=== PATIENT | female | born 1945 | race Caucasian/White ===

== ENCOUNTER 2016-08-18 08:49 | Outpatient (CLI) | payer MEDICARE, OTHER | END 2016-08-18 08:50 | disposition home or self-care (01) | DX: Z12.31 Encounter for screening mammogram for malignant neoplasm of breast (principal) ==

== ENCOUNTER 2016-10-14 10:38 | Outpatient (CLI) | payer MEDICARE, OTHER ==
--- NOTE | 2016-10-14 12:22 | XRAY Report ---
THREE VIEW CERVICAL SPINE: 10/14/2016 CLINICAL INDICATION: Tingling left hand. FINDINGS: AP, lateral, odontoid, and swimmers views of the cervical spine demonstrate mild degenerat andrew disk and facet disease. There is no evidence of fracture or subluxation. The prevertebral soft ti ssues are unremarkable. IMPRESSION: MILD DEGENERATIVE CHANGES. JOB #: [id number] EXT JOB #:[id number]
== END 2016-10-14 10:39 | disposition home or self-care (01) ==
LOC: DI 10:38
PROVIDERS: ATTEND Family Medicine
DX: M50.30 Other cervical disc degeneration, unspecified cervical region (principal); M47.892 Other spondylosis, cervical region
CPT/HCPCS: 72040

== ENCOUNTER 2018-11-27 14:11 | Outpatient (CLI) | payer MEDICARE, OTHER ==
--- NOTE | 2018-11-27 16:22 | Mammography Report ---
Reason: SCREENING MAMMO Procedure Date: 11/27/2018 Accession Number: [id number] / [id number] Procedure: JACOB - Screening Mammo w/Will CPT Code: FULL RESULT: EXAM: Screening Mammo w/Will DATE: 11/27/2018 3:17 PM CLINICAL HISTORY: Screening encounter. History of benign left breast biopsy. TECHNIQUE: (B) - Bilateral CC and MLO views were obtained. Right laterally exaggerated CC views obtained. COMPARISON: 08/18/2016 through 05/04/2010. PARENCHYMAL PATTERN: (A) - The breast(s) demonstrate(s) scattered fibroglandular densities. FINDINGS: Was biopsy changes in the left breast are stable. There are no suspicious masses, calcifications, or areas of distortion. IMPRESSION: Benign findings. BI-RADS category 2. RECOMMENDATION: (ANNUAL) - Recommend routine annual screening mammography. BI-RADS CATEGORY: (2) - Benign Findings. STANDARD QUALIFYING STATEMENTS: 1. This examination was not reviewed with the aid of Computer-Aided Detection (CAD). 2. A negative or benign imaging report should not preclude biopsy if clinically suspicious findings are present. 3. Dense breasts may obscure an underlying neoplasm. 4. This examination was reviewed with the aid of 3D breast imaging (tomosynthesis).
== END 2018-11-27 14:12 | disposition home or self-care (01) ==
LOC: DI 14:11
PROVIDERS: ATTEND Internal Medicine
DX: Z12.31 Encounter for screening mammogram for malignant neoplasm of breast (principal)
CPT/HCPCS: 77063; 77067

== ENCOUNTER 2020-03-02 14:27 | Outpatient (CLI) | payer MEDICARE, OTHER ==
--- NOTE | 2020-03-02 15:43 | DEXA Report ---
PROCEDURE: Dexa Spine and/or Hip INDICATIONS: POSTMENOPAUSAL, OSTEOPENIA TECHNIQUE: Dual energy x-ray absorptiometry (DXA) was performed on a [email or web address] System. Regions measur ed are the AP Spine, femoral neck, and if needed forearm. COMPARISON: DEXA FINDINGS: Lumbar Spine: Bone Mineral Density 1.089 g/cm/cm,T score -0.6, unchanged compared to prior exam. Left Hip: Bone Mineral Density 0.935 g/cm/cm,T score -0.6, compared to -0.3 on prior exam. Left Femoral Neck: Bone Mineral Density 0.832 g/cm/cm, T score -1.5, compared to -0.6 on prior exam. (T score greater or equal to -1.0: NORMAL) (T score from -1.1 to -2.4: OSTEOPENIA) (T score less than or equal to -2.5 to: OSTEOPOROSIS) Impression: Mild osteopenia within the femoral neck, new compared to prior exam. Patients with diagnosis of osteoporosis or osteopenia should have regular bone mineral density assess ment. For those eligible for Medicare, routine testing is allowed once every 2 years. Testing frequ ency can be increased for patients who have rapidly progressing disease or for those who are receivin g medical therapy to restore bone mass. Reviewed by: Deirdre Lowe MD on 03/02/2020 3:41 PM PST Approved by: Deirdre Lowe MD on 03/02/2020 3:41 PM PST Station ID: [id number]
== END 2020-03-02 14:28 | disposition home or self-care (01) ==
LOC: DI 14:27
PROVIDERS: ATTEND Physician Assistant Medical
DX: M85.88 Other specified disorders of bone density and structure, other site (principal)
CPT/HCPCS: 77080

== ENCOUNTER 2020-03-02 14:28 | Outpatient (CLI) | payer MEDICARE, OTHER ==
--- NOTE | 2020-03-03 15:07 | Mammography Report ---
BILATERAL DIGITAL SCREENING MAMMOGRAM 3D/2D: 03/02/2020 CLINICAL: Routine screening. Comparison is made to exams dated: 11/27/2018 mammogram, 08/18/2016 mammogram, and 03/10/2015 mammogram - [facility]. There are scattered fibroglandular elements in both breasts. There is a possible developing asymmetry in the right breast anterior depth central to the nipple see n on the craniocaudal view only. This is more prominent. No other significant masses, calcifications, or other findings are seen in either breast. Surgical cl ip in the left breast. IMPRESSION: INCOMPLETE: NEEDS ADDITIONAL IMAGING EVALUATION Possible developing asymmetry in the right breast is indeterminate. Additional views with possible ultrasound are recommended. This exam was interpreted at Station ID: [id number]. NOTE: For mammograms, a report in lay terms will be sent to the patient. Approximately 15% of breast malignancies will not be visualized mammographically. In the management of a palpable breast mass, a negative mammogram must not discourage biopsy of a clinically suspicious lesion. Electronically Signed By: Stevenson Jha M.D. slc/:03/03/2020 13:15:55 ACR BI-RADS Category 0: Incomplete 3340F PARENCHYMAL PATTERN: (A) - The breast(s) demonstrate(s) scattered fibroglandular densities. BI-RADS CATEGORY: (0) - 0 Mammo and [place] [id number] Immediate follow-up LATERALITY: (B)
== END 2020-03-02 14:29 | disposition home or self-care (01) ==
LOC: DI 14:28
PROVIDERS: ATTEND Physician Assistant Medical
DX: Z12.31 Encounter for screening mammogram for malignant neoplasm of breast (principal); R92.8 Other abnormal and inconclusive findings on diagnostic imaging of breast
CPT/HCPCS: 77063; 77067

== ENCOUNTER 2020-03-30 09:23 | Outpatient (CLI) | payer MEDICARE, OTHER ==
--- NOTE | 2020-03-31 08:59 | Mammography Report ---
UNILATERAL RIGHT DIGITAL DIAGNOSTIC MAMMOGRAM 3D/2D: 03/30/2020 CLINICAL: Patient returns today to evaluate a focal asymmetry in the right breast. Comparison is made to exams dated: 03/02/2020 mammogram, 11/27/2018 mammogram, and 08/18/2016 mammogram - [facility]. There are scattered fibroglandular elements in right breast. The benign asymmetry in the right breast middle depth central to the nipple seen on the craniocaudal view only is no longer seen. No other significant masses or calcifications are seen in the breast. IMPRESSION: BENIGN There is no mammographic evidence of malignancy. Return to annual mammogram screening schedule is rec ommended. This exam was interpreted at Station ID: [id number]. NOTE: For mammograms, a report in lay terms will be sent to the patient. Approximately 15% of breast malignancies will not be visualized mammographically. In the management of a palpable breast mass, a negative mammogram must not discourage biopsy of a clinically suspicious lesion. Electronically Signed By: Gilberto Justice M.D., jr/jessica:03/30/2020 10:50:44 ACR BI-RADS Category 2: Benign Finding(s) 3342F PARENCHYMAL PATTERN: (A) - The breast(s) demonstrate(s) scattered fibroglandular densities. BI-RADS CATEGORY: (2) - 2 Mammogram [id number] return to screening LATERALITY: (B)
== END 2020-03-30 09:24 | disposition home or self-care (01) ==
LOC: DI 09:23
PROVIDERS: ATTEND Physician Assistant Medical
DX: R92.8 Other abnormal and inconclusive findings on diagnostic imaging of breast (principal); N64.89 Other specified disorders of breast

== ENCOUNTER 2021-11-16 08:22 | Outpatient (CLI) | payer MEDICARE, OTHER ==
--- NOTE | 2021-11-17 09:51 | Mammography Report ---
BILATERAL DIGITAL SCREENING MAMMOGRAM 3D/2D: 11/16/2021 CLINICAL: Routine screening. Comparison is made to exams dated: 03/30/2020 mammogram, 03/02/2020 mammogram, 11/27/2018 mammogram, 08/18/2016 mammogram, and 03/10/2015 mammogram - [facility]. There are scattered fib roglandular elements in both breasts. No significant masses, calcifications, or other findings are seen in either breast. There has been no significant interval change. IMPRESSION: NEGATIVE There is no mammographic evidence of malignancy. A 1 year screening mammogram is recommended. Based on the Tyrer Cuzick model (a risk assessment model) the patients lifetime risk is 4.4% and her 10 year risk is 4.0%. According to the ACR, ACS, and NCCN guidelines, an annual breast MRI exam lena g with mammogram is recommended if the patients lifetime risk is 20% or greater. This exam was interpreted at Station ID: [id number]. NOTE: For mammograms, a report in lay terms will be sent to the patient. Approximately 15% of breast malignancies will not be visualized mammographically. In the management of a palpable breast mass, a negative mammogram must not discourage biopsy of a clinically suspicious lesion. Electronically Signed By: Naila marquez/jessica:11/16/2021 10:27:50 ACR BI-RADS Category 1: Negative 3341F PARENCHYMAL PATTERN: (A) - The breast(s) demonstrate(s) scattered fibroglandular densities. BI-RADS CATEGORY: (1) - 1 RECOMMENDATION: (ANNUAL) - Recommend routine annual screening mammography. [id number] 1 year screening LATERALITY: (B)
== END 2021-11-16 08:23 | disposition home or self-care (01) ==
LOC: DI 08:22
PROVIDERS: ATTEND Physician Assistant
DX: Z12.31 Encounter for screening mammogram for malignant neoplasm of breast (principal)

== ENCOUNTER 2022-02-15 08:17 | Outpatient (CLI) | payer MEDICARE, OTHER ==
--- NOTE | 2022-02-15 09:22 | DEXA Report ---
PROCEDURE: Dexa Spine and/or Hip INDICATIONS: OSTEOPENIA TECHNIQUE: Dual energy x-ray absorptiometry (DXA) was performed on a [employer] System. Regions measur ed are the AP Spine, femoral neck, and if needed forearm. COMPARISON: 03/02/2020 FINDINGS: Lumbar Spine: Bone Mineral Density 1.24 g/cm/cm,T score 0.5, previously -0.6 Left Hip: Bone Mineral Density 0.90 g/cm/cm,T score -0.8, previously -0.6 Left Femoral Neck: Bone Mineral Density 0.84 g/cm/cm, T score -1.4, previously -1.5 (T score greater or equal to -1.0: NORMAL) (T score from -1.1 to -2.4: OSTEOPENIA) (T score less than or equal to -2.5 to: OSTEOPOROSIS) Impression: Osteopenia of the left femoral neck. T scores in the lumbar spine have improved. T-scores in the left hip and left femoral neck are similar to prior. Patients with diagnosis of osteoporosis or osteopenia should have regular bone mineral density assess ment. For those eligible for Medicare, routine testing is allowed once every 2 years. Testing frequ ency can be increased for patients who have rapidly progressing disease or for those who are receivin g medical therapy to restore bone mass. Reviewed by: Lonnie Rowland MD on 02/15/2022 9:20 AM PDT Approved by: Lonnie Rowland MD on 02/15/2022 9:20 AM PDT Station ID: [id number]
== END 2022-02-15 08:18 | disposition home or self-care (01) ==
LOC: DI 08:17
PROVIDERS: ATTEND Physician Assistant
DX: M85.88 Other specified disorders of bone density and structure, other site (principal)

== ENCOUNTER 2022-02-23 12:19 | Outpatient (CLI) | payer MEDICARE, OTHER ==
--- NOTE | 2022-02-23 15:09 | XRAY Report ---
PROCEDURE: Hand 3 View BILAT INDICATIONS: ARTHRITIS TECHNIQUE: 3 views of the hand(s) acquired. COMPARISON: None FINDINGS: Bones: No fractures or dislocations. No suspicious bony lesions. There is some [id number] osteoarthritic type degenerative change involving the DIP joints. Soft tissues: No suspicious soft tissue calcifications. IMPRESSION: 1. 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 2. No evidence for acute osseous abnormality seen. Reviewed by: Jhonny Newell MD on 02/23/2022 3:07 PM PST Approved by: Jhonny Newell MD on 02/23/2022 3:07 PM [facility] Station ID: [id number]
== END 2022-02-23 12:20 | disposition home or self-care (01) ==
LOC: DI 12:19
PROVIDERS: ATTEND Internal Medicine
DX: M19.042 Primary osteoarthritis, left hand (principal); M19.041 Primary osteoarthritis, right hand

== ENCOUNTER 2023-03-10 11:00 | Outpatient (CLI) | payer MEDICARE, OTHER ==
--- NOTE | 2023-03-10 12:24 | XRAY Report ---
PROCEDURE: Chest 2 View X-Ray INDICATIONS: ACUTE BRONCHITIS TECHNIQUE: 2 views of the chest were acquired. COMPARISON: None. FINDINGS: Surgical changes and devices: None. Lungs and pleura: No pleural effusions or pneumothorax. Lungs are clear. Mediastinum: Mediastinal contours appear normal. Heart size is normal. Bones and chest wall: No suspicious bony lesions. Overlying soft tissues appear unremarkable. IMPRESSION: No acute cardiopulmonary process. Reviewed by: Lorenzo Loera on 03/10/2023 12:23 PM [facility] Approved by: Lorenzo Loera on 03/10/2023 12:23 PM [facility] Station ID: [id number]
== END 2023-03-10 11:15 | disposition home or self-care (01) ==
LOC: DI.N 11:00
PROVIDERS: ATTEND Family Medicine
DX: J40 Bronchitis, not specified as acute or chronic (principal)

== ENCOUNTER 2023-12-21 08:00 | Outpatient (CLI) | payer MEDICARE, OTHER | END 2023-12-21 23:59 | disposition home or self-care (01) | LOC: LAB.N 08:00 | PROVIDERS: ATTEND Physician Assistant Medical | DX: N30.00 Acute cystitis without hematuria (principal) | CPT/HCPCS: 87086 ==